=== PATIENT | female | born 1955 | race Caucasian/White ===

== ENCOUNTER → 2020-07-01 06:56 | Outpatient (CLI) | payer BC ==
[2020-04-19 13:33] VITALS: BMI 37.2
[~2020-07-01 06:56] MED LIST: ATIVAN0.5 MG PO; BAYER CHEWABLE81 MG PO; CALCIUM 600 +1 EAC3 PO; CLINDAMYCIN HC300 MG PO; CRESTOR40 MG PO; LEVOFLOXACIN500 MG PO; LEXAPRO20 MG PO; NORCO 7.5-3251 EACH PO; PROTONIX40 MG PO; RESTORIL15 MG PO; ZOFRAN4 MG PO
== END | disposition home or self-care (01) ==
LOC: D.RT 06:56
PROVIDERS: ATTEND Internal Medicine Pulmonary Disease
DX: J44.9 Chronic obstructive pulmonary disease, unspecified (principal); K59.00 Constipation, unspecified